=== PATIENT | female | born 1955 | race Caucasian/White ===

== ENCOUNTER → 2020-07-14 11:18 | Outpatient (BNVA) | payer MEDICARE, OTHER, SELFPAY | PROVIDERS: Family Provider Obstetrics & Gynecology; Visit Provider Podiatrist Foot & Ankle Surgery | DX: M25.571 Pain in right ankle and joints of right foot (principal); M25.572 Pain in left ankle and joints of left foot | CPT/HCPCS: 73610; 73630 ==

== ENCOUNTER 2021-04-03 12:53 | Outpatient (RCR) | payer MEDICARE, OTHER, SELFPAY | END 2021-05-03 23:59 | disposition home or self-care (01) | LOC: CR 12:53 | PROVIDERS: Family Provider Obstetrics & Gynecology; PCP Obstetrics & Gynecology; Referring Provider Internal Medicine Interventional Cardiology; Visit Provider Internal Medicine Interventional Cardiology | DX: Z95.5 Presence of coronary angioplasty implant and graft (principal) | CPT/HCPCS: 93798 ==

== ENCOUNTER 2021-05-04 15:02 | Outpatient (RCR) | payer MEDICARE, OTHER, SELFPAY | END 2021-06-02 23:59 | disposition home or self-care (01) | LOC: CR 15:02 | PROVIDERS: Family Provider Obstetrics & Gynecology; PCP Obstetrics & Gynecology; Referring Provider Internal Medicine Interventional Cardiology; Visit Provider Internal Medicine Interventional Cardiology | DX: Z95.5 Presence of coronary angioplasty implant and graft (principal) | CPT/HCPCS: 93798 ==

== ENCOUNTER 2021-06-03 09:30 | Outpatient (RCR) | payer MEDICARE, OTHER, SELFPAY | END 2021-07-03 23:59 | disposition home or self-care (01) | LOC: CR 09:30 | PROVIDERS: Family Provider Obstetrics & Gynecology; PCP Obstetrics & Gynecology; Referring Provider Internal Medicine Interventional Cardiology; Visit Provider Internal Medicine Interventional Cardiology | DX: Z95.5 Presence of coronary angioplasty implant and graft (principal) | CPT/HCPCS: 93798 ==

== ENCOUNTER 2021-07-02 13:51 | Outpatient (CLI) | payer MEDICARE, OTHER, SELFPAY ==
[2021-07-02 16:28] LABS: Basophils # 0.1 10^3/uL (0.0-0.1); Basophils % 0.8 %; Eosinophils # 0.1 10^3/uL (0.0-0.8); Eosinophils % 1.5 %; Hematocrit 47.3 % (37.0-47.0); Hemoglobin 15.9 g/dL (11.5-15.3); Lymphocytes # 2.1 10^3/uL (0.8-4.8); Lymphocytes % 22.7 %; Mean Corpuscular HGB Conc 33.6 g/dL (30.0-36.0); Mean Corpuscular Hemoglobin 31.4 pg (28.0-34.0); Mean Corpuscular Volume 93.5 fl (81-99); Mean Platelet Volume 11.8 fL (7.4-10.4); Monocytes # 1.1 10^3/uL (0.2-0.9); Monocytes % 11.6 %; Neutrophils # 5.71 10^3/uL (1.8-7.7); Nucleated Red Blood Cells % 0 %; Platelet Count 189 10^3/cmm (130-400); Red Blood Count 5.06 10^6/uL (4.1-5.3); Red Cell Distribution Width 12.7 % (12.1-15.1); White Blood Count 9.1 10^3/uL (4.0-10.0)
[2021-07-02 16:46] LABS: Alanine Aminotransferase 49 U/L (0-33); Albumin Level 4.2 g/dL (3.5-5.2); Alkaline Phosphatase 101 IU/L (35-105); Aspartate Amino Transferase 27 U/L (0-32); Blood Urea Nitrogen 17 mg/dL (8-23); Calcium 8.7 mg/dL (8.5-10.5); Carbon Dioxide 20 mmol/L (22-29); Chloride 105 mmol/L (98-107); Ferritin 82 ng/mL (15-150); Globulin 2.6 g/dL (1.3-4.6); Glucose 99 mg/dL (65-115); Iron 96 ug/dL (37-145); Osmolality Calculated 292 mOsm/kg (285-295); Percent Saturation 28.2 % (20-50); Sodium 140 mmol/L (136-145); Total Bilirubin 0.3 mg/dL (0.15-1.2); Total Iron Binding Capacity 340 mcg/dl; Total Protein 6.8 g/dL (6.6-8.7); Unsaturated Iron Binding 244 ug/dL (112-347)
[2021-07-02 16:48] LABS: Anion Gap 18.8 (5-19); Potassium 3.8 mmol/L (3.5-5.1)
[2021-07-02 17:10] LABS: Lactate Dehydrogenase 220 U/L (135-214)
--- NOTE | 2021-07-02 18:51 | ONC CON_ITS ---
Dr. Siddiqui New Patient Note Patient: Genesis Hilliard Unit #: [id number]: 1955 Dicatated By: Percy Siddiqui M.D.Date of Visit: Jul 02, 2021 Onc MED New Patient/Consult Referring Physician: Chief Complaint: Hemochromatosis. History of Present Illness: This is a 65-year-old woman with hereditary hemochromatosis. She has hypertension, hyperlipidemia, and hypothyroidism, and she is on CPAP for obstructive sleep apnea. In July 2020 she underwent cardiac evaluation because of shortness of breath and limited activity tolerance. This ultimately led to an angioplasty/stent procedure in February, which unfortunately failed to improve her symptoms. In the meantime, she also had been found to have elevated hemoglobin/hematocrit levels. Her further laboratory evaluation on 04/30/2021 included a CBC which showed her hemoglobin elevated at 15.9 g with hematocrit 48.6%. The white blood cell count was normal at 6500, and the platelet count was normal at 162,000. Comprehensive metabolic profile showed borderline renal function with BUN 23 and creatinine 1.16 mg/dL. The SGPT was slightly elevated at 45/29 U/L. The bilirubin and the other liver enzymes were normal. An HFE gene analysis showed heterozygosity for the H63D mutation. Her main complaint is that she has short of breath and tachycardia with any activity, and she feels that it has been getting worse. She is able to do light work, but she has to take her time. Her ECOG score is 1. She has had a 12 pound weight gain since summer, though she has not changed her eating habits. She has not had fever. She does have sweating with activity. She complains that for the past few months her tongue has been sore, especially when she first gets up in the morning. She has not had sore throat or difficulty swallowing. She occasionally has a little bit of cough. She does not complain of chest pain. She has no GI or complaints. She says her knees have been hurting something for years, and she also sometimes has pain in her ankles. She has been having headaches, and she occasionally wakes up in the middle of the night with a headache. She has episodes of her hands tingling, they sometimes go numb. She has no other focal neurologic symptoms. She has had some depression. Past Medical History: Her medical history includes carotid stenosis, coronary artery disease, hyperlipidemia, hypertension, hypothyroidism, and obstructive sleep apnea. Past Surgical History: Her surgical/procedural history inlcudes arthroscopic left knee surgery, coronary angioplasty/stent placement in 2020, uterine ablation in 2018, D&C in 2017, and knee arthroscopy in 2012. Medications: Amitriptyline HCl 1 Tablet (of 25 mg) Oral at bedtime, Barry Thyroid 0.5 Tablet (of 90 mg) Oral daily, Aspirin 1 Tablet (of 325 mg) Tablet, enteric coated Oral daily, Atorvastatin Calcium 40 mg Tablet Oral daily, Estradiol 1 Patch(es) (of 0.025 mg/24hr) Patch Weekly Transdermal, immune booster 1 Tablet daily, Ketoconazole Shampoo Topical PRN, Magnesium 1 Capsule (of 400 mg) Tablet Oral at bedtime, Nitroglycerin Tablet, sublingual Sublingual PRN, Underwood 3 Capsule Oral, Plavix 1 Tablet (of 75 mg) Oral daily, Verapamil HCl ER 1 Capsule (of 180 mg) Capsule SR 24 HR Oral daily Allergies: Metoprolol Tartrate and Minocycline HCl. Social History: Ms. Hilliard is . She is a non-smoker. She has occasional, social alcohol use. Family History: Mother is in good health at age 84. Father with coronary artery disease at age 58. A sister has diabetes and coronary artery disease. Her older son had a myocardial infarction at age 37, and her younger son is on medical therapy for coronary artery disease. Review Of Symptoms: Constitutional - She has limited activity tolerance due to shortness of breath. She is able to do light work, but she has to take her time. She has had a 16 pound weight gain since summer, though she has not changed her eating habits. She has not had fever. She has sweating with activity. ECOG score is 1, Eyes - She occasionally has blurred vision when she first gets up in the morning, ENMT - No hearing loss or tinnitus. No sinus congestion/drainage. She complains that her tongue feels sore. No sore throat or difficulty swallowing, Hematologic/Lymphatic - She has easy bruising, Respiratory - She has shortness of breath with activity. She has just a little bit of cough. No pleuritic pain or hemoptysis, Cardiovascular - No angina pain. No palpitations, but she has fast heart rate with the shortness of breath, Gastrointestinal - No nausea or vomiting. No heartburn or acid reflux. No diarrhea or constipation. No blood in the stool or black stools, Genitourinary (F) - No dysuria or hematuria. No urinary frequency. No urgency or incontinence, Musculoskeletal - She has pain in her knees, which is sometimes fears , and she also has some pain in her ankles, Integumentary - No skin rash or other skin changes, Neurologic - No headache or dizziness. She has been having headaches, and she occasionally wakes up in the middle of the night with a headache. She does not complain of dizziness. She has occasional episodes of tingling in her hands, and they sometimes go numb. No other focal neurologic symptoms, Psychiatric - She has had some depression. No insomnia. Vital Signs: Performed on Jul 02, 2021 14:42: 5, 0, 0.00, 0.00 sq.m, 99 %, 99 /min, 18 /min, 115/79 mm(hg), 97.7 F (LOW), and 207.2 lbs (HIGH). Physical Examination: Constitutional - She appears to be in good general health, Eyes - Sclerae nonicteric. Conjunctivae clear, ENMT - No lesions noted in the oral cavity, Neck - No mass or thyromegaly, Hematologic/Lymphatic - No cervical, clavicular, or axillary adenopathy, Respiratory - Lungs are clear with good air movement bilaterally, Cardiovascular - Heart rhythm is regular. There is no murmur, gallop, or rub noted, Abdomen - Mildly distended. Liver and spleen are not enlarged. There is no abdominal mass or ascites noted and there is no inguinal adenopathy, Back/Spine - No spine or CVA tenderness noted, Extremities - No edema. Pedal pulses are palpable bilaterally, Integumentary - No rashes. No suspicious skin lesions noted, Neurologic - No focal neurologic deficits noted. Problem List: 1. Hereditary hemochromatosis. 2. Elevated hemoglobin/hematocrit levels. The cause/clinical significance is uncertain. 3. Hypertension. 4. Hyperlipidemia. 5. Coronary artery disease. 6. Carotid stenosis. 7. Hypothyroidism. 8. Obstructive sleep apnea. Problems Addressed with this Encounter and Plan: 1. Patient with hereditary hemochromatosis. Her HFE gene analysis showed heterozygosity for the H63D mutation. As yet, it is uncertain to what extent this may be clinically significant, as patients with just one mutated HFE gene do not tend to have symptomatic iron overload, though serum iron levels may be mildly elevated. Furthermore, as recently as 2 years ago she was still having heavy menstrual bleeding, which makes it even less likely that she would have iron overload. At this point I do want to check her serum iron studies and her ferritin level, and she will have further evaluation as indicated. However, in the absence of any evidence of cardiomyopathy, it is very unlikely that hemochromatosis/iron overload would be contributing to her symptoms. 2. She has mildly elevated hemoglobin/hematocrit levels. The cause is uncertain. However, by clinical evaluation it appears unlikely that she would have polycythemia rubra vera and in the absence of any evidence of underlying hypoxia, the most likely cause would be a decreased plasma volume, i.e. stress erythrocytosis . She will have additional laboratory studies today to include CBC, comprehensive metabolic profile, erythropoietin level, and a JAK2 gene mutation analysis. She will have further evaluation as indicated. Signed By: Percy Siddiqui M.D. <<Signature on File>>
[2021-07-06 14:03] LABS: Erythropoietin 10.4 mIU/mL (2.6-18.5)
[2021-07-10 14:57] LABS: CALR Exon 9 Mutation NOT DETECTED (NOT DETECTED); CSF3R Exon 14/17 Mutation NOT DETECTED (NOT DETECTED); JAK2 Exon 12 Mutation NOT DETECTED (NOT DETECTED); JAK2 V617 Block Specimen ID NG; JAK2 V617 Clinical Indication NG; JAK2 V617 Mutation NOT DETECTED (NOT DETECTED); JAK2 V617 Specimen Source NG; MPL Exon 12 Mutation NOT DETECTED (NOT DETECTED)
== END 2021-07-02 13:52 | disposition home or self-care (01) ==
LOC: ONCMED 14:04
PROVIDERS: Family Provider Obstetrics & Gynecology; PCP Obstetrics & Gynecology; Visit Provider Internal Medicine Medical Oncology
DX: E83.119 Hemochromatosis, unspecified (principal); I10 Essential (primary) hypertension; E03.9 Hypothyroidism, unspecified; G47.33 Obstructive sleep apnea (adult) (pediatric); R06.02 Shortness of breath; R00.0 Tachycardia, unspecified; D58.2 Other hemoglobinopathies; I25.10 Atherosclerotic heart disease of native coronary artery without angina pectoris; I65.29 Occlusion and stenosis of unspecified carotid artery; D72.821 Monocytosis (symptomatic)
CPT/HCPCS: 36415; 80053; 80500; 81270; 82668; 82728; 83540; 83550; 83615; 85025; 99204

== ENCOUNTER 2021-07-06 09:37 | Outpatient (RCR) | payer MEDICARE, OTHER, SELFPAY | END 2021-08-03 23:59 | disposition home or self-care (01) | LOC: CR 09:37 | PROVIDERS: Family Provider Obstetrics & Gynecology; PCP Obstetrics & Gynecology; Referring Provider Internal Medicine Interventional Cardiology; Visit Provider Internal Medicine Interventional Cardiology | DX: Z95.5 Presence of coronary angioplasty implant and graft (principal) | CPT/HCPCS: 93798 ==

== ENCOUNTER 2021-07-20 14:15 | Outpatient (CLI) | payer MEDICARE, OTHER, SELFPAY ==
--- NOTE | 2021-07-20 | CT_ITS ---
WS: [id number] CTA OF THE CHEST WITH PULMONARY EMBOLISM PROTOCOL TECHNIQUE: High-resolution contrast enhanced CTA of the chest with coronal and sagittal reformatted i mages with pulmonary embolism protocol. MIP images are also reviewed. CLINICAL INFORMATION: SOB, TACHYCARDIA COMPARISON: None. DLP: 684.[address] scans at [facility] use at least one of these dose optimization techniques: automated e xposure control; mA and/or kV adjustment per patient size (includes targeted exams where dose is matc hed to clinical indication); or iterative reconstruction. FINDINGS: Proximal main pulmonary arteries are normal. Normal segmental and subsegmental pulmonary arteries. No evidence of pulmonary embolus. Normal caliber thoracic aorta. Normal caliber descending thoracic aor ta. Adrenal glands are normal. Normal GE junction. No mediastinal or hilar lymphadenopathy. No axilla ry lymphadenopathy. Both lungs are well aerated. No acute pulmonary infiltrates. No pleural fluid. Hy pertrophic changes thoracic spine. CT/CT angio chest PE protcl [id number] IMPRESSION: 1. No evidence of pulmonary embolus. 2. No acute pulmonary infiltrates. 3. No mediastinal or hilar lymphadenopathy. 4. Hypertrophic changes thoracic spine.
[2021-07-20] MEDS: iohexol 350 mg/mL 100 mL Btl IV (15:41)
== END 2021-07-20 14:16 | disposition home or self-care (01) ==
PROVIDERS: Family Provider Obstetrics & Gynecology; PCP Obstetrics & Gynecology; Visit Provider Internal Medicine Medical Oncology
DX: R06.02 Shortness of breath (principal); R00.0 Tachycardia, unspecified
CPT/HCPCS: 71275; Q9967

== ENCOUNTER 2021-08-10 11:10 | Outpatient (RCR) | payer SELFPAY | END 2021-08-31 23:59 | disposition home or self-care (01) | LOC: CR 11:10 | PROVIDERS: Family Provider Obstetrics & Gynecology; PCP Obstetrics & Gynecology; Referring Provider Internal Medicine Interventional Cardiology; Visit Provider Internal Medicine Interventional Cardiology | DX: Z95.5 Presence of coronary angioplasty implant and graft (principal) ==

== ENCOUNTER 2021-09-01 12:33 | Outpatient (RCR) | payer SELFPAY | END 2021-10-01 23:59 | disposition home or self-care (01) | LOC: CR 12:33 | PROVIDERS: Family Provider Obstetrics & Gynecology; PCP Obstetrics & Gynecology; Referring Provider Internal Medicine Interventional Cardiology; Visit Provider Internal Medicine Interventional Cardiology | DX: Z95.5 Presence of coronary angioplasty implant and graft (principal) ==

== ENCOUNTER 2021-10-02 12:22 | Outpatient (RCR) | payer SELFPAY | END 2021-10-31 23:59 | disposition home or self-care (01) | LOC: CR 12:22 | PROVIDERS: Family Provider Obstetrics & Gynecology; PCP Obstetrics & Gynecology; Referring Provider Internal Medicine Interventional Cardiology; Visit Provider Internal Medicine Interventional Cardiology | DX: Z95.5 Presence of coronary angioplasty implant and graft (principal) ==

== ENCOUNTER 2021-11-05 11:43 | Outpatient (RCR) | payer SELFPAY | END 2021-12-01 23:59 | disposition home or self-care (01) | LOC: CR 11:43 | PROVIDERS: Family Provider Obstetrics & Gynecology; PCP Obstetrics & Gynecology; Referring Provider Internal Medicine Interventional Cardiology; Visit Provider Internal Medicine Interventional Cardiology | DX: Z95.5 Presence of coronary angioplasty implant and graft (principal) ==

== ENCOUNTER 2022-07-02 14:47 | Outpatient (CLI) | payer MEDICARE, OTHER, SELFPAY ==
--- NOTE | 2022-07-02 15:04 | CT_ITS ---
WS: [id number] CT CHEST WITHOUT INTRAVENOUS CONTRAST HISTORY: HX OF AORTIC ANEURYSM TECHNIQUE: Contiguous 5 mm axial imaging performed on the thorax. Coronal and sagittal reformats are submitted. All CT scans at [facility] use at least one of these dose optimization techniques: automated exposure control; mA and/or kV adjustment per patient size (includes targeted exams where dose is matched to clinical indication); or iterative reconstruction. CONTRAST: None DLP: 617.51 mGy.cm COMPARISON: Chest CTA 07/20/2021 Lungs and central airway: Well aerated lungs. 4 mm nodule along the RIGHT major fissure unchanged sin ce the prior study. These are typically benign. No mass or nodule. Pleura: Normal. No pleural effusion. Heart and pericardium: Normal size heart with no pericardial effusion. Mediastinum and kevin: No mediastinum or hilar adenopathy. Vessels: Normal size thoracic aorta. Maximum diameter of 4.0 cm. Mild ectasia with normal tapering of the distal descending aorta. No aneurysm. Origin of the great vessels is normal. Normal pulmonary ar chrissy. Chest wall and lower neck: No soft tissue masses. Upper abdomen: Small hiatal hernia. Incompletely visualized LEFT kidney. There are small cysts which are probably parapelvic cysts in the LEFT kidney. These are incompletely visualized. No adrenal mass. Osseous structures: Increase in the thoracic kyphosis. CT/CT chest wo con [id number] IMPRESSION: 1. No pneumonia. 2. Normal thoracic aorta. No aneurysm. Maximum diameter 4.0 cm.
== END 2022-07-02 14:48 | disposition home or self-care (01) ==
PROVIDERS: PCP Obstetrics & Gynecology; Visit Provider Nurse Practitioner Family
DX: Z86.79 Personal history of other diseases of the circulatory system (principal)
CPT/HCPCS: 71250

== ENCOUNTER 2023-01-19 12:27 | Outpatient (CLI) | payer MEDICARE, OTHER, SELFPAY ==
--- NOTE | 2023-01-19 12:37 | US_ITS ---
WS: [id number] ULTRASOUND THYROID TECHNIQUE: Ultrasound of the thyroid. CLINICAL INFORMATION: HYPOTHYROIDISM COMPARISON: Ultrasound thyroid 2012. FINDINGS: Thyroid: Right and left thyroid lobes are normal in size and echotexture. Right thyroid lobe: 3.5 cm x 1.3 cm x 1.5 cm Left thyroid lobe: 4.2 cm x 1.3 cm x 1.2 cm. Solid complex LEFT mid/inferior thyroid nodule. No internal vascularity. This measures approximately 1.0 x 1.0 x 0.9 CM. A few echogenic foci. Recommend 12 month follow-up. Isthmus: 0.2 mm. Cervical lymphadenopathy: None. US/US thyroid [id number] IMPRESSION: 1. Solid complex LEFT mid/inferior thyroid nodule. No internal vascularity. Th is measures approximately 1.0 x 1.0 x 0.9 CM. A few echogenic foci. This is ess entially unchanged since 2012 2. No other suspicious thyroid nodules.
== END 2023-01-19 12:28 | disposition home or self-care (01) ==
PROVIDERS: PCP Obstetrics & Gynecology; Referring Provider Nurse Practitioner Family; Visit Provider Obstetrics & Gynecology
DX: E03.9 Hypothyroidism, unspecified (principal)
CPT/HCPCS: 76536

== ENCOUNTER 2023-05-09 15:09 | Outpatient (CLI) | payer MEDICARE, OTHER, SELFPAY ==
--- NOTE | 2023-05-09 15:11 | XR_ITS ---
WS: [id number] SCREENING DEXA SCAN [facility] CLINICAL INFORMATION: POSTMENOPAUSAL COMPARISON: None. FINDINGS: The L1-L4 bone mineral density measures 1.595 g/cm2. This corresponds to a T score score of 3.5 and Z score of 4.3. Left femoral neck bone mineral density measures 1.282 g/cm2. This corresponds to a T score of 2.2 and Z score of 2.9. Right femoral neck bone mineral density measures 1.296 g/cm2. This corresponds to a T score 2.3of and Z score of 3.1. Mean femoral neck bone mineral density measures 1.289 g/cm2. This corresponds to a T score of 2.2 and Z score of 3.0. IMPRESSION: Normal bone mineralization. Patient's FRAX calculated 10 year probability for major osteoporotic fracture is 6.7% and osteoporoti c hip fracture is 0.3%.
== END 2023-05-09 15:10 | disposition home or self-care (01) ==
LOC: RAD 15:09
PROVIDERS: PCP Obstetrics & Gynecology; Visit Provider Nurse Practitioner Family
DX: Z78.0 Asymptomatic menopausal state (principal)
CPT/HCPCS: 77080

== ENCOUNTER → 2024-02-20 13:28 | Outpatient (BNVA) | payer MEDICARE, OTHER, SELFPAY | PROVIDERS: PCP Obstetrics & Gynecology; Visit Provider Podiatrist Foot & Ankle Surgery | DX: M76.72 Peroneal tendinitis, left leg | CPT/HCPCS: 73630; 99203 ==

== ENCOUNTER → 2024-05-09 09:20 | Outpatient (BNVA) | payer MEDICARE, OTHER, SELFPAY | PROVIDERS: PCP Obstetrics & Gynecology; Visit Provider Podiatrist Foot & Ankle Surgery | DX: M79.672 Pain in left foot (principal); M76.72 Peroneal tendinitis, left leg | CPT/HCPCS: 99213 ==

== ENCOUNTER 2024-11-13 11:44 | Outpatient (CLI) | payer MEDICARE, OTHER, SELFPAY ==
--- NOTE | 2024-11-13 11:50 | CT_ITS ---
WS: [id number] CT ABDOMEN AND PELVIS WITH AND WITHOUT CONTRAST HISTORY: COMPLICATED UTI TECHNIQUE: Unenhanced 5 mm axial imaging first performed through the abdomen. Post contrast imaging through the abdomen and pelvis. Oral contrast has not been provided. Sagittal and coronal reformats are submitted. All CT scans at [facility] use at least one of these dose optimization techniques: automated exposure control; mA and/or kV adjustment per patient size (includes targeted exams where dose is matched to clinical indication); or iterative reconstruction. CONTRAST: Omnipaque 350; 95 mL IV. DLP: 1269.59 mGy.cm COMPARISON: None available. Lung bases are clear. Normal size heart. Small hiatal hernia. RIGHT kidney: 10.2 cm in length. No renal calcification or obstruction. Duplicated renal pelvis and duplicated ureters. There are a few small parapelvic cysts. LEFT kidney: 10.1 cm in length. Parapelvic cysts throughout the kidney. There is no obstruction. Fat-containing mass with septations involving the lower pole measures 4.0 x 3.2 x 3.1 cm. Hounsfield units are very low. There is does not appear to be any significant enhancement. No calcifications. No renal invasion is identified. LEFT ureter is normal. Normal liver, spleen and gallbladder. No adrenal mass. Normal pancreas. Mild atherosclerosis aorta. No GI tract obstruction. Prior gastric bypass. No ascites or adenopathy. Mildly dilated paraovarian veins. Correlate for pelvic congestion syndrome. No destructive bone lesions. CT/CT abdomen pelvis wo/w [id number] IMPRESSION: 1. LEFT renal angiomyolipoma. Mass containing macroscopic fat with no enhancem ent in the lower pole LEFT kidney. Mass measures 4.0 x 3.2 x 3.1 cm and is most consistent with an angiomyolipoma. 2. Numerous LEFT parapelvic cysts with no obstruction. 3. 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
[2024-11-13] MEDS: iohexol 350 mg/mL 500 mL Btl (per mL) IV (12:26)
[2024-11-13 12:33] LABS: Blood Urea Nitrogen 18 mg/dL (8-23); Glomerular Filtration Rate 71.1 mL/min (90-130)
== END 2024-11-13 11:45 | disposition home or self-care (01) ==
PROVIDERS: PCP Obstetrics & Gynecology; Visit Provider Nurse Practitioner Family
DX: N39.0 Urinary tract infection, site not specified (principal); D17.71 Benign lipomatous neoplasm of kidney; N28.89 Other specified disorders of kidney and ureter; R93.89 Abnormal findings on diagnostic imaging of other specified body structures; K44.9 Diaphragmatic hernia without obstruction or gangrene; I70.0 Atherosclerosis of aorta; Z98.890 Other specified postprocedural states; I86.8 Varicose veins of other specified sites
CPT/HCPCS: 74178; 82565; 84520